=== PATIENT | female | born 1960 | race Caucasian/White ===

== ENCOUNTER 2016-07-04 14:10 | Emergency (ER) | payer SELFPAY ==
[2016-07-04 14:48] LABS: #Basophils 0.1 thou/uL (0.0-0.2); #Eosinphils 0.2 thou/uL (0.0-0.7); #Lymphocytes 1.7 thou/uL (1.20-3.40); #Monocytes 0.4 thou/uL (0.11-0.59); #Neutrophils 4.8 thou/uL (1.40-6.50); %Lymphocytes 23.8 % (21.0-51.0); %Monocytes 5.2 % (0.0-10.0); Hemoglobin 12.7 g/dL (12.0-16.0); Mean Corpuscular HGB CONC 32.3 g/dL (32.0-36.0); Mean Corpuscular Hemoglobin 28.5 pg (27.0-31.0); Mean Corpuscular Volume 88.3 fl (81.0-99.0); Mean Platelet Volume 7.2 fL (7.4-10.4); Platelet Count 238 thou/uL (130-400); RBC Distribution Width 13.4 % (11.5-14.5); Red Blood Cell (RBC) Count 4.44 mill/uL (4.20-5.40); White Blood Cell (WBC) Count 7.2 thou/uL (4.8-10.8)
[2016-07-04 15:00] LABS: ALT (SGPT) 45 U/L (0-55); AST (SGOT) 27 U/L (5-34); Albumin 3.8 g/dL (3.5-5.0); Alkaline Phosphatase 99 U/L (40-150); Anion Gap 13 mmol/L (10-20); BUN (Urea Nitrogen) 11 mg/dL (9.8-20.1); Bilirubin, Total 0.4 mg/dL (0.2-1.2); Calc. Creatinine Clearance 0 mL/min (70-130); Calcium 9.6 mg/dL (7.8-10.44); Carbon Dioxide 25 mmol/L (22-29); Chloride 108 mmol/L (98-107); Estimated GFR-MDRD 78; Globulin 2.9 g/dL (2.4-3.5); Glucose 96 mg/dL (70-105); Potassium 4.4 mmol/L (3.5-5.1); Protein, Total 6.7 g/dL (6.0-8.3); Sodium 142 mmol/L (136-145)
[2016-07-04 15:03] LABS: CKMB 0.9 ng/mL (0-6.6); Troponin I Less than 0.010 ng/mL (< 0.028)
[2016-07-04] MEDS ORDERED: Furosemide 40 MG/4 ML VIAL ONE (15:59)
--- NOTE | 2016-07-04 16:25 | RAD ---
FRONTAL AND LATERAL CHEST: Date: 07-04-16 Comparison: 11-10-14 History: Dyspnea. FINDINGS: No pneumothorax, pleural fluid, focal consolidation, or alveolar edema. Heart and mediastinal contou rs are stable. IMPRESSION: Stable appearance of the chest. No acute findings. POS: [facility]
== END 2016-07-04 16:05 | disposition home or self-care (01) ==
LOC: MADERS 14:10
DX: R60.0 Localized edema (principal); I10 Essential (primary) hypertension; J45.909 Unspecified asthma, uncomplicated; M32.9 Systemic lupus erythematosus, unspecified
CPT/HCPCS: 71020; 80053; 82553; 83735; 83880; 84484; 85025; 93005; 96374; J1940

== ENCOUNTER 2017-01-11 10:09 | Outpatient (CLI) | payer OTHER ==
--- NOTE | 2017-01-11 13:01 | ULT ---
THYROID ULTRASOUND: Date: 01-11-17 History: Thyroid found on CT from outside institution report. Comparison: Previous outside CT is not available. FINDINGS: Multiple longitudinal and transverse images of the thyroid gland obtained using a multihertz linear array transducer. Real-time and color flow images demonstrate the right thyroid lobe to measure 3.5 x 2.0 x 1.8 cm while the left measures 3.5 x 1.8 x 2.6 cm. No definite evidence of a thyroid mass or lesion seen. No evidence of architectural distortion is seen. No evidence of solid or cystic masses seen. IMPRESSION: Normal thyroid ultrasound. POS: [facility]
== END 2017-01-11 10:10 | disposition home or self-care (01) ==
LOC: MADULT 10:09
PROVIDERS: ATTEND Family Medicine
DX: E04.1 Nontoxic single thyroid nodule (principal)
CPT/HCPCS: 76536

== ENCOUNTER 2021-12-29 12:36 | Outpatient (CLI) | payer MEDICARE, OTHER | END 2021-12-29 12:37 | disposition home or self-care (01) | LOC: MADRAD 12:36 | PROVIDERS: ATTEND Internal Medicine Rheumatology | DX: M06.9 Rheumatoid arthritis, unspecified (principal); M17.0 Bilateral primary osteoarthritis of knee ==

== ENCOUNTER 2022-02-17 09:55 | Outpatient (CLI) | payer OTHER | END 2022-02-17 09:56 | disposition home or self-care (01) | LOC: MADRAD 09:55 | DX: R06.02 Shortness of breath (principal) | CPT/HCPCS: 71046 ==

== ENCOUNTER 2022-04-09 13:33 | Emergency (ER) | payer OTHER ==
[2022-04-09] MEDS ORDERED: Dexamethasone 4 MG TAB ONE (15:28)
== END 2022-04-09 15:56 | disposition home or self-care (01) ==
LOC: MADERS 13:33
DX: J02.9 Acute pharyngitis, unspecified (principal); J06.9 Acute upper respiratory infection, unspecified; I10 Essential (primary) hypertension; J44.9 Chronic obstructive pulmonary disease, unspecified; Z79.899 Other long term (current) drug therapy
CPT/HCPCS: 99283; J8540

== ENCOUNTER 2025-02-11 11:44 | Outpatient (CLI) | payer OTHER, MEDICAID ==
[2025-02-11 12:53] LABS: ALT (SGPT) 43 U/L (Less than 34); AST (SGOT) 34 U/L (11-34); Albumin 3.8 g/dL (3.1-4.5); Alkaline Phosphatase 121 U/L (40-110); Anion Gap 16 mmol/L (10-20); BUN (Urea Nitrogen) 17 mg/dL (9.8-20.1); Bilirubin, Total 0.7 mg/dL (0.3-1.2); Calc. Creatinine Clearance 0 mL/min (70-130); Calcium 9.5 mg/dL (7.8-10.44); Carbon Dioxide 25 mmol/L (23-31); Chloride 106 mmol/L (98-107); Globulin 4.2 g/dL (2.4-3.5); Glucose 81 mg/dL (80-115); Potassium 4.9 mmol/L (3.5-5.1); Sodium 142 mmol/L (136-145)
[2025-02-11 13:03] LABS: #Basophils 0.1 thou/uL (0.0-0.2); #Eosinophils 0.1 thou/uL (0.0-0.7); #Lymphocytes 2.1 thou/uL (1.20-3.40); #Monocytes 0.5 thou/uL (0.11-0.59); #Neutrophils 3.5 thou/uL (1.40-6.50); %Basophils 1.4 % (0.0-1.0); %Eosinophils 1.9 % (0.0-10.0); %Lymphocytes 33.4 % (21.0-51.0); %Monocytes 7.4 % (0.0-10.0); %Neutrophils 55.8 % (42.0-75.0); Hematocrit 51.6 % (36.0-47.0); Hemoglobin 15.2 g/dL (12.0-16.0); Mean Corpuscular Hemoglobin 29.8 pg (27.0-31.0); Mean Corpuscular Volume 100.9 fl (78.0-98.0); Platelet Count 172 10x3/uL (130-400); Red Blood Cell (RBC) Count 5.12 mill/uL (4.20-5.40); White Blood Cell (WBC) Count 6.2 10x3/uL (4.8-10.8)
== END 2025-02-11 11:45 | disposition home or self-care (01) ==
LOC: MADLAB 11:44
PROVIDERS: ATTEND Internal Medicine Rheumatology
DX: M06.09 Rheumatoid arthritis without rheumatoid factor, multiple sites (principal)
CPT/HCPCS: 36415; 80053; 85025; 86140